=== PATIENT | male | born 1935 | race Caucasian/White ===

== ENCOUNTER 2016-11-27 09:25 | Inpatient (IN) | payer OTHER ==
[~2016-11-27] VITALS: Ht 172.7 cm; Wt 75.0 kg
[2016-11-27] VITALS (12 sets, daily range): BP systolic 0–131; BP diastolic 0–59
[~2016-11-27 09:25] MED LIST: ADULT LOW DOSE81 M1 PO; COLACE100 MG PO; COUMADIN,JANTO1.5 MG PO; Coumadin dosing per PO; ENDOCET 5-3251 EACH PO; Feosol PO; LIPITOR40 MG PO; LORTAB 5-325 M1 EACH PO; Lipitor PO; METOPROLOL SUCC25 MG PO; NITROSTAT,NITR0.4 M1 SL; Omega III EPA + DHA PO; PreserVision Softgel PO; Toprol XL PO; ULTRAM50 MG PO; VALIUM5 MG PO; Vibramycin PO; Vitamin D PO
[2016-11-27 10:08] LABS: EOSINOPHIL (%) 2.3 % (0-5); EOSINOPHIL COUNT 0.2 K/uL (0-0.3); HEMATOCRIT 36.5 % (38.0-50.0); IMMATURE GRANULOCYTE (%) 0.2 % (0.0-0.7); INSTRUMENT ABS NEUTROPHIL CT 4.5 K/uL; LYMPHOCYTE COUNT 1.2 K/uL (1.0-2.8); MCH 30.3 PG (29.0-34.0); MCHC 32.3 G/DL (30.0-36.0); MCV 93.8 FL (86-99); MEAN PLAT.VOLUME 11.5 uM^3 (9.0-12.4); MONOCYTE (%) 9.7 % (3-12); MONOCYTE COUNT 0.6 K/uL (0-0.8); NEUTROPHIL COUNT 4.5 K/uL (1.8-6.4); PLATELET COUNT 152 K/uL (156-360); RBC DIS.WIDTH-CV 13.1 % (11.8-14.6); RBC DIS.WIDTH-SD 44.9 % (39-53); RED BLOOD COUNT 3.89 M/uL (4.00-5.50); WHITE BLOOD COUNT 6.5 K/uL (4.1-10.2)
[2016-11-27 10:17] LABS: PROTHROMBIN TIME 10.5 (9.2-11.2); PTT 23.5 (25-32)
[2016-11-27 10:18] LABS: POTASSIUM 4.3 mEq/L (3.7-5.4)
[2016-11-27 10:19] LABS: AMYLASE 79 IU/L (1-118); CHLORIDE 104 mEq/L (99-109); POTASSIUM 4.3 mEq/L (3.7-5.4); SODIUM 139 mEq/L (136-147)
[2016-11-27 10:21] LABS: GLUCOSE 108 mg/dL (70-99)
[2016-11-27 10:22] LABS: ANION GAP 9 MEQ/L (2-14)
[2016-11-27 10:24] LABS: GFR ESTIMATE (CALCULATED) > 59 mL/min/; SERUM ETHYL ALCOHOL < 10 mg/dL
[2016-11-27 10:25] LABS: UREA NITROGEN (BUN) 19 mg/dL (9-23)
[2016-11-27 10:27] LABS: LIPASE 17 U/L (1.0-51.0)
[2016-11-27 10:33] LABS: TROP-I INTERPRETATION POSITIVE; TROPONIN-I 0.88 ng/mL (0.0-0.30)
[2016-11-27 13:27] LABS: ADD MIUA? NO; BILIRUBIN NEGATIVE; BLOOD NEGATIVE; COLOR YELLOW ((YELLOW)); GLUCOSE (STRIP) NEGATIVE; KETONES 5; LEUKOCYTES NEGATIVE; NITRITE NEGATIVE; PROTEIN (STRIP) NEGATIVE; UCUL ADDED? NO; UROBILINOGEN 0.2 MG/DL (0.2-1.0)
[2016-11-27 13:35] LABS: SPECIFIC GRAVITY 1.061 (1.000-1.030)
[2016-11-27 13:53] LABS: COCAINE NEGATIVE (150 ng/mL); METHAMPHETAMINE NEGATIVE (500 ng/mL); PHENCYCLIDINE NEGATIVE (25 ng/mL); THC CANNABINOIDS NEGATIVE (50 ng/mL)
[2016-11-27 13:54] LABS: AMPHETAMINE NEGATIVE (500 ng/mL); BARBITURATES NEGATIVE (200 ng/mL); BENZODIAZEPINES NEGATIVE (150 ng/mL); INTERNAL CONTROLS VALID? YES; METHADONE NEGATIVE (200 ng/mL); OPIATES (MORPHINE) PRESUMPTIVE POSITIVE (100 ng/mL); OXYCODONE NEGATIVE (100 ng/mL); PROPOXYPHENE NEGATIVE (300 ng/mL); TRICYCLIC ANTIDEPRESSANTS NEGATIVE (300 ng/mL)
[2016-11-27 13:55] LABS: ADD MEDTOX COMMENT Y
[2016-11-27 14:17] LABS: METH RESISTANT S AUREUS PCR NEGATIVE (NEGATIVE)
[2016-11-27 14:25] LABS: PROBE CHECK PASS; SPECIMEN PROCESSING CONTROL PASS
[2016-11-27] MEDS ORDERED: ATORVASTATIN CA40 MG PO (15:15)
[2016-11-27 17:44] LABS: TROP-I INTERPRETATION POSITIVE; TROPONIN-I 3.98 ng/mL (0.0-0.30)
[2016-11-28] VITALS (17 sets, daily range): BP systolic 86–101; BP diastolic 32–44
[2016-11-28 01:40] LABS: TROP-I INTERPRETATION POSITIVE; TROPONIN-I 7.69 ng/mL (0.0-0.30)
[2016-11-28 13:21] LABS: MCH 30.7 PG (29.0-34.0); MCHC 32.5 G/DL (30.0-36.0); MCV 94.4 FL (86-99); MEAN PLAT.VOLUME 11.6 uM^3 (9.0-12.4); PLATELET COUNT 118 K/uL (156-360); RBC DIS.WIDTH-CV 13.2 % (11.8-14.6); RBC DIS.WIDTH-SD 45.2 % (39-53); RED BLOOD COUNT 3.39 M/uL (4.00-5.50)
[2016-11-28 13:44] LABS: ANION GAP 7 MEQ/L (2-14); CHLORIDE 105 MEQ/L (99-109); GFR ESTIMATE (CALCULATED) > 59 mL/min/; GLUCOSE 105 mg/dL (70-99); POTASSIUM 4.3 MEQ/L (3.7-5.4); SAMPLE HEMOLYSIS CHECK 0; SAMPLE ICTERIC CHECK 0; SAMPLE LIPEMIA CHECK 0; SODIUM 138 MEQ/L (136-147); UREA NITROGEN (BUN) 17 mg/dL (9-23)
[2016-11-28 13:47] LABS: TROP-I INTERPRETATION POSITIVE; TROPONIN-I 13.72 ng/mL (0.0-0.30)
[2016-11-29] VITALS (14 sets, daily range): BP systolic 82–116; BP diastolic 37–58
[2016-11-29 07:03] LABS: HEMATOCRIT 32.2 % (38.0-50.0); MCH 30.5 PG (29.0-34.0); MCHC 32.6 G/DL (30.0-36.0); MCV 93.6 FL (86-99); MEAN PLAT.VOLUME 11.5 uM^3 (9.0-12.4); PLATELET COUNT 116 K/uL (156-360); RBC DIS.WIDTH-CV 13.2 % (11.8-14.6); RBC DIS.WIDTH-SD 45.1 % (39-53); RED BLOOD COUNT 3.44 M/uL (4.00-5.50); WHITE BLOOD COUNT 6.5 K/uL (4.1-10.2)
[2016-11-29 07:31] LABS: ANION GAP 7 MEQ/L (2-14); CHLORIDE 107 MEQ/L (99-109); GFR ESTIMATE (CALCULATED) > 59 mL/min/; GLUCOSE 81 mg/dL (70-99); POTASSIUM 4.1 MEQ/L (3.7-5.4); SAMPLE HEMOLYSIS CHECK 0; SAMPLE ICTERIC CHECK 0; SAMPLE LIPEMIA CHECK 0; SODIUM 141 MEQ/L (136-147); UREA NITROGEN (BUN) 16 mg/dL (9-23)
[2016-11-29 07:41] LABS: TROP-I INTERPRETATION POSITIVE; TROPONIN-I 13.83 ng/mL (0.0-0.30)
[2016-11-30 04:28] VITALS: BP 96/50
[2016-11-30 07:30] VITALS: BP 101/52
[2016-11-30] MEDS ORDERED: LOPRESSOR25 MG PO (11:18)
[2016-11-30] MEDS ORDERED: ATORVASTATIN CA40 MG PO (11:18)
[2016-11-30] MEDS ORDERED: ASPIR-LOW81 MG PO (11:18)
[2016-11-30] MEDS ORDERED: CLOPIDOGREL75 MG PO (11:18)
[2016-11-30 11:29] VITALS: BP 98/53
== END 2016-11-30 16:14 | disposition home health service (06) | DRG 251 ==
LOC: EME 09:25 → 4WEST 12:20 → 4EAST 11-29 14:16
PROVIDERS: Emergency Medicine; Internal Medicine Cardiovascular Disease
DX: I21.19 ST elevation (STEMI) myocardial infarction involving other coronary artery of inferior wall (principal); I25.810 Atherosclerosis of coronary artery bypass graft(s) without angina pectoris; I25.82 Chronic total occlusion of coronary artery; R00.1 Bradycardia, unspecified; I25.10 Atherosclerotic heart disease of native coronary artery without angina pectoris; I10 Essential (primary) hypertension; E78.5 Hyperlipidemia, unspecified; I25.2 Old myocardial infarction; Z79.82 Long term (current) use of aspirin
CPT/HCPCS: 80047; 80048; 81003; 82150; 83605; 83690; 84484; 84999; 85025; 85027; 85347; 85610; 85730; 86900; 86901; 87641; 90832; 93005; 93306; 99281; 99284; C1725; C1760; C1769; C1887; C1894; G0480; J0583; J1644; J1650; J2250; J3010; J7030; J7050

== ENCOUNTER 2016-12-10 21:36 | Emergency (ER) | payer OTHER ==
[~2016-12-10] VITALS: Ht 172.7 cm; Wt 75.0 kg
[~2016-12-10 21:36] MED LIST changes: +ASPIR-LOW81 MG PO; +ATORVASTATIN CA40 MG PO; +CLOPIDOGREL75 MG PO; +LOPRESSOR25 MG PO
[2016-12-10 23:31] VITALS: BP 153/68
== END 2016-12-10 23:40 | disposition home or self-care (01) ==
LOC: EME 21:36
DX: L76.21 Postprocedural hemorrhage of skin and subcutaneous tissue following a dermatologic procedure (principal); Z87.891 Personal history of nicotine dependence; Z85.828 Personal history of other malignant neoplasm of skin
CPT/HCPCS: 99281; 99284